=== PATIENT | female | born 2000 | race Caucasian/White ===

== ENCOUNTER 2018-05-30 21:49 | Inpatient (IN) ==
[2018-05-31] MEDS ORDERED: Tdap (Boostrix) Vaccine 0.5 ML SYRINGE IM ONE (00:40)
--- NOTE | 2018-05-31 00:44 | Emergency Department Note ---
Disposition Clinical Impression: Suicidal ideation, Self mutilating behavior Depression Qualifiers: Depression Type: unspecified Qualified Code(s): F32.9 - Major depressive disorder, single episode, unspecified Disposition: Admitted As Inpatient Condition: Good Referrals: NONE,PCP [Primary Care Provider] - Forms: ED Satisfaction Letter Time of Disposition: 05:51 Psych HPI - General Chief Complaint: ED Psychiatric Symptoms Time Seen by Provider: 05/30/18 21:57 Source: patient, EMS Nursing Notes Reviewed: Yes Vital Signs Reviewed: Yes - History of Present Illness HPI Narrative: 18-year-old female presents with complaint of self-induced lacerations to her bilateral wrists, and complaining of worsening depression. Patient states that she has self mutilated in the past, nothing recently, and she had used a razor blade to injure her wrist earlier tonight. She mentions increased stress, specifically mention that she recently had reported her brother to child protective services. She mentions that her parents were not pleased that she did this, and also request a do not visit her here. Patient describes a history of anxiety, and depression area she does mention that she has then suicidal with a plan in the past, however that was approximately 2 years ago. She currently denies suicidal ideation however she does describe worsening depression, accompanied with self-mutilation, as well as noncompliance with her psychiatric medications. She mentioned she is currently attempting to get her medical card, to [facility] with him she describes a good relationship with. She mentions she has a friend Delicia, who is in route to the hospital, and tells me that Delicia would tell me that patient often that she has OF hurting herself. Patient mentions that she is hungry and is causing some headache and nausea, but otherwise denies any recent illness, homicidal ideation, hallucinations, or any pain. - Related Data Previous Rx's Medication Instructions Recorded Sertraline [Zoloft] 25 mg PO DAILY #30 tablet 08/31/16 TraZODone 25 mg PO HS PRN #30 tablet 08/31/16 Acetaminophen w/Cod 300-30 mg 1 each PO Q6HR #20 tablet 05/19/17 [Tylenol w/Codeine #3] Ibuprofen [Motrin] 600 mg PO Q6HR PRN #30 tab 05/19/17 Ondansetron ODT [Zofran ODT] 4 mg SL Q6HR #16 tab.rapdis 05/05/18 Ondansetron HCl 4 mg PO Q6H #20 tablet 05/06/18 Allergies Allergy/AdvReac Type Severity Reaction Status Date / Time No Known Allergies Allergy Verified 08/30/16 19:51 All systems ED: reviewed and negative except as stated. Review of Systems: As Per HPI Constitutional: Denies: fever, chills, weakness Eyes: Denies: vision change ENT ED: Denies: throat pain Cardiovascular: Denies: chest pain Respiratory: Denies: dyspnea Gastrointestinal: Reports: as per HPI Genitourinary: Denies: dysuria Musculoskeletal: Denies: back pain Integumentary: Reports: as per HPI. Denies: rash Neurological: Reports: as per HPI Psychiatric: Reports: as per HPI. Denies: homicidal thoughts, auditory hallucinations, visual hallucinations Endocrine: Denies: fatigue Hematological/Lymphatic: Denies: easy bleeding Allergic/Immunologic: Denies: facial swelling Past Medical History - Past Medical History Medical history: Reports: non-contributory Psychiatric history: Reports: anxiety, depression METAL CASTING TRADES WORKER history: Reports: no METAL CASTING TRADES WORKER history - Social History Smoking Status: Never smoker Smokeless Tobacco Status: No Alcohol use: Reports: none Drug use: Reports: none Physical Exam - General Limitations: no limitations General appearance: alert, in no apparent distress - Head Head exam: atraumatic, normocephalic - Eye Eye exam: Present: EOMI - ENT ENT exam: mucous membranes moist - Neck Neck exam: Present: full ROM - Chest Chest inspection: Present: symmetric chest wall rise - Respiratory Respiratory exam: Absent: respiratory distress - Cardiovascular Cardiovascular exam: Present: regular rate - Extremities Exam Extremities exam: Present: full ROM, normal capillary refill - Expanded Upper Extremity Exam Elbow exam: Present: full ROM Forearm/Wrist exam: Present: full ROM, other (noted grouped linear lacerations on flexor surface of B wrists, mostly on left; no active bleeding) Hand exam: Present: full ROM, tenderness Neuromotor exam: Normal: wrist extension, thumb opposition, thumb IP flexion, thumb adduction, fingers 2-5 abduction Neurosensory exam: Normal: 2-point discrimination Hand tendon exam: Normal: flexor digitorum profundus (location), flexor digitorum superficialis (location), extensor tendon (location) Vascular exam: Normal: capillary refill - Back Exam Back exam: Present: full ROM - Neurological Exam Neurological exam: Present: alert - Psychiatric Psychiatric exam: Present: normal affect, normal mood - Skin Skin exam: Present: warm, dry, intact, normal color. Absent: rash, cyanosis, diaphoresis Course Course Narrative: 18-year-old female with known history of depression and anxiety, currently noncompliant with her medications, no recent counseling, presents with self- mutilation behavior, worsening depression area Patient seen and examined. she is alert, clinical sober. No evidence of any disorganized thoughts or confusion. She has lacerations or bilateral less, consistent with self- mutilation. No active bleeding. Wounds appear to be superficial and will not require closure. We will cleanse and dress wounds. , the patient's tetanus. Pt has h/o of depression, h/o of prior SI with plan, appears to be non compliant and/or no longer on medication or following up with therapy. I feel the patient will benefit from behavioral health evaluation here that attempt to medically clear her for one a consult. Patient has a friend at bedside - Reevaluation(s) Reevaluation #1: Patient's friend was no longer there, however patient's other friends kya and Telly with patient at this point. Patient describes them as her " spiritual parents". Delicia describes herself as patient's "mentor". Apparently they are roommates as well. They report that they had found patient in her bedroom, with apparent ease to her wrist, and Delicia mentions that she thought patient was unresponsive as she was unable to awaken patient. She does mention that the patient was breathing at that time.. That time 911 was called. I did review [facility] run sheet, nursing notes. [facility] had reported they were dispatched for unresponsive, however patient was alert and oriented and standing outside on their arrival. No narcan was administered. Pt is not known to due illicit drugs. Additionally patient's vital signs on [facility]' assessment :BP 139/92, pulse 131 16, 99% on room air. Initial triage vitals hear have a BP of 98/54 which I feel was falsely low due to poor BP cuff placement, as patient has an obese arms and large cuff. I've retaken patien't BP myself and her BP appears consistent with no concern for hypotension. Her HR is also within normal limits. Pt mentions she is unsure why she passed out. She declines to discuss details. She denies drug use. Pt also now appears more depressed at this point mentioning she no longer has a place to live, mentioning because the events of tonight she has been "kicked out" of her housing. I reviewed patient' recent EMR. Apparently she had one previous syncopal episode one month ago and was evlauted at [facility] discharged with vasovagal episode. She apparently returned to the ED at [facility] that same evening, observed , and discharged home with no evidence of any emergent findings. She was to f/ u with a PCP. Patient's workup is complete. She has a slight elevation of blood cell count, that I feel is less concerning for infection, likely reactive to patient's multiple abrasions on her wrist. Abrasions were cleansed with chlorhexidine, irrigated, and dressed. Her urinalysis appears to be contaminated, patient denies any UTI symptoms. Drug sceen negative. Vitals within normal limits. Patient cleared for 1A. Time: 02:23 Reevaluation #2: Patient discussed with when a nurse, Lis, who had evaluated patient, and discuss patient with on-call psychiatrist Dr. Wood. Patient now admitting her actions tonight were result of suicidal ideation. Additionally, she does meet criteria for inpatient admission. Patient accepted to [facility] staff for voluntary admission for depression and suicidal ideation. Time: 05:49 Vital Signs Temperature 98.5 F 05/30/18 21:53 Pulse Rate 112 05/30/18 21:53 Respiratory Rate 18 05/30/18 21:53 Blood Pressure 98/54 05/30/18 21:53 O2 Sat by Pulse Oximetry 97 05/30/18 21:53 Temperature 98.5 F 05/30/18 21:53 Pulse Rate 102 05/31/18 02:27 Respiratory Rate 16 05/31/18 02:27 Blood Pressure 132/84 05/31/18 02:27 O2 Sat by Pulse Oximetry 96 05/31/18 02:27 Oxygen Delivery Oxygen Delivery Room Air Psych - Lab Data Result diagrams: 05/31/18 01:05 05/31/18 01:05 Lab Results 05/31/18 05/31/18 05/31/18 Range/Units 01:05 01:05 01:30 WBC 11.9 H (4.3-11.1) K/mcL RBC 5.13 H (3.82-4.97) M/mcL Hgb 13.2 (11.5-15.4) g/dL Hct 40.5 (35.3-44.9) % MCV 78.9 L (83.0-100.0) fL MCH 25.7 L (28.0-33.3) pg MCHC 32.6 (31.6-35.5) g/dL RDW 15.0 H (11.5-14.5) % Plt Count 322 (140-400) K/mcL MPV 9.7 (9.4-12.4) fL Immature Gran % 0.3 (0-4) % Seg Neutrophils % 73.2 % Lymphocytes % 18.8 % Monocytes % 7.0 % Eosinophils % 0.3 % Basophils % 0.4 % Neutrophils # 8.7 (1.6-8.9) K/mcL Lymphocytes # 2.2 (0.6-4.6) K/mcL Monocytes # 0.8 (0.0-1.3) K/mcL Eosinophils # 0.0 (0.0-0.6) K/mcL Basophils # 0.1 (0.0-0.2) K/mcL Sodium 139 (136-145) mEq/L Potassium 3.6 (3.5-5.1) mEq/L Chloride 108 H (98-107) mEq/L Carbon Dioxide 23 (23-29) mEq/L BUN 13 (6-20) mg/dL Creatinine 0.69 (0.60-1.20) mg/dL Est GFR ( Amer) > 60 (> 60) Est GFR (Non-Af Amer) > 60 (> 60) BUN/Creatinine Ratio 19 (6-26) Glucose 97 (70-105) mg/dL Calculated Osmolality 288 (280-300) Calcium 9.3 (8.6-10.3) mg/dL Urine Color Dark Yellow (Yellow) Urine Clarity Cloudy A (Clear) Urine pH 6.0 (5.0-8.0) pH Units Ur Specific [place] 1.024 (1.010-1.025) Urine Protein 30 H (Neg-Trace) mg/dL Urine Glucose (UA) Normal (Normal) mg/dL Urine Ketones 40 H (Negative) mg/dL Urine Blood Large H (Negative) Urine Nitrite Negative (Negative) Urine Bilirubin Small H (Negative) Urine Urobilinogen Normal (Normal) mg/dL Ur Leukocyte Esterase Small H (Negative) Urine Microscopic RBC TNTC H (0-3) per hpf Urine Microscopic WBC 15-30 H (0-3) per hpf Ur Squamous Epith Cells Moderate H (None-Few) per lpf Urine Bacteria None Seen (None-Few) per hpf Hyaline Casts None Seen (None-Few) per lpf Urine Test (Negative) Salicylates < 2.5 L (15.0-30.0) mg/dL Urine Opiates Screen (Ykgmpv=843) ng/mL Acetaminophen < 10 L (10-20) mcg/mL Ur Barbiturates Screen (Nqmwmb=925) ng/mL Ur Phencyclidine Scrn (Cutoff=25) ng/mL Ur Amphetamines Screen (Eyneti=4928) ng/mL U Benzodiazepines Scrn (Nxdbaj=890) ng/mL Urine Cocaine Screen (Cutoff= 300) ng/mL U Marijuana (THC) Screen (Cutoff = 50) ng/mL Ur Drug Screen Interp Ethyl Alcohol < 10 (Less than 10) mg/dL 05/31/18 05/31/18 Range/Units 01:30 01:30 WBC (4.3-11.1) K/mcL RBC (3.82-4.97) M/mcL Hgb (11.5-15.4) g/dL Hct (35.3-44.9) % MCV (83.0-100.0) fL MCH (28.0-33.3) pg MCHC (31.6-35.5) g/dL RDW (11.5-14.5) % Plt Count (140-400) K/mcL MPV (9.4-12.4) fL Immature Gran % (0-4) % Seg Neutrophils % % Lymphocytes % % Monocytes % % Eosinophils % % Basophils % % Neutrophils # (1.6-8.9) K/mcL Lymphocytes # (0.6-4.6) K/mcL Monocytes # (0.0-1.3) K/mcL Eosinophils # (0.0-0.6) K/mcL Basophils # (0.0-0.2) K/mcL Sodium (136-145) mEq/L Potassium (3.5-5.1) mEq/L Chloride (98-107) mEq/L Carbon Dioxide (23-29) mEq/L BUN (6-20) mg/dL Creatinine (0.60-1.20) mg/dL Est GFR ( Amer) (> 60) Est GFR (Non-Af Amer) (> 60) BUN/Creatinine Ratio (6-26) Glucose (70-105) mg/dL Calculated Osmolality (280-300) Calcium (8.6-10.3) mg/dL Urine Color (Yellow) Urine Clarity (Clear) Urine pH (5.0-8.0) pH Units Ur Specific [place] (1.010-1.025) Urine Protein (Neg-Trace) mg/dL Urine Glucose (UA) (Normal) mg/dL Urine Ketones (Negative) mg/dL Urine Blood (Negative) Urine Nitrite (Negative) Urine Bilirubin (Negative) Urine Urobilinogen (Normal) mg/dL Ur Leukocyte Esterase (Negative) Urine Microscopic RBC (0-3) per hpf Urine Microscopic WBC (0-3) per hpf Ur Squamous Epith Cells (None-Few) per lpf Urine Bacteria (None-Few) per hpf Hyaline Casts (None-Few) per lpf Urine Test Negative (Negative) Salicylates (15.0-30.0) mg/dL Urine Opiates Screen Negative (Kexwmk=776) ng/mL Acetaminophen (10-20) mcg/mL Ur Barbiturates Screen Negative (Olnqdw=654) ng/mL Ur Phencyclidine Scrn Negative (Cutoff=25) ng/mL Ur Amphetamines Screen Negative (Pgwdlh=9210) ng/mL U Benzodiazepines Scrn Negative (Iiqhrq=664) ng/mL Urine Cocaine Screen Negative (Cutoff= 300) ng/mL U Marijuana (THC) Screen Negative (Cutoff = 50) ng/mL Ur Drug Screen Interp See Below Ethyl Alcohol (Less than 10) mg/dL Psychiatric Medical Clearance - Medical Clearance Checklist Does the patient have a NEW psychiatric condition?: No Any abnormalities indicating possible medical illness?: No Any history of medical issues?: No Medical History: No Social History Section defined Any abnormal vital signs prior to transfer?: No Current Vitals: Last Vital Signs Temp 98.5 F 05/30/18 21:53 Pulse 102 05/31/18 02:27 Resp 16 05/31/18 02:27 BP 132/84 05/31/18 02:27 Pulse Ox 96 05/31/18 02:27 Is the patient intoxicated or cognitively impaired?: No Psychiatric Lab Panel: Drug Levels and Toxicity 05/31/18 05/31/18 01:05 01:30 Urine Opiates Screen Negative Acetaminophen < 10 L Ur Barbiturates Screen Negative Ur Phencyclidine Scrn Negative Ur Amphetamines Screen Negative U Benzodiazepines Scrn Negative Urine Cocaine Screen Negative U Marijuana (THC) Screen Negative Ethyl Alcohol < 10 Any abnormalities on the physical exam?: Yes (multiple abrasions/lacerations to B wrists, consistent with self inflicted ) Any abnormal labs?: Yes (elevated WBC) Abnormal Labs: Abnormal lab results WBC 11.9 K/mcL (4.3-11.1) H 05/31/18 01:05 RBC 5.13 M/mcL (3.82-4.97) H 05/31/18 01:05 MCV 78.9 fL (83.0-100.0) L 05/31/18 01:05 MCH 25.7 pg (28.0-33.3) L 05/31/18 01:05 RDW 15.0 % (11.5-14.5) H 05/31/18 01:05 Chloride 108 mEq/L (98-107) H 05/31/18 01:05 Urine Clarity Cloudy (Clear) A 05/31/18 01:30 Urine Protein 30 mg/dL (Neg-Trace) H 05/31/18 01:30 Urine Ketones 40 mg/dL (Negative) H 05/31/18 01:30 Urine Blood Large (Negative) H 05/31/18 01:30 Urine Bilirubin Small (Negative) H 05/31/18 01:30 Ur Leukocyte Esterase Small (Negative) H 05/31/18 01:30 Urine Microscopic RBC TNTC per hpf (0-3) H 05/31/18 01:30 Urine Microscopic WBC 15-30 per hpf (0-3) H 05/31/18 01:30 Ur Squamous Epith Cells Moderate per lpf (None-Few) H 05/31/18 01:30 Salicylates < 2.5 mg/dL (15.0-30.0) L 05/31/18 01:05 Acetaminophen < 10 mcg/mL (10-20) L 05/31/18 01:05 If abnormals exist; proposed resolution:: likely reactive, less likely infectious cause Does the patient require durable medical equiptment?: No Is the patient ambulatory?: Yes Is the patient a fall risk?: No Has the patient been medically cleared?: Yes Any acute medical condition require Tx prior to transfer?: No Statement of Medical Clearance: I have evaluated the patient, reviewed diagnostic information, and certify that the patient's medical condition is sufficiently stable that transfer to the psychiatric unit does not pose a significant risk of deterioration.
[2018-05-31 01:17] LABS: Basophils # 0.1 K/mcL (0.0-0.2); Basophils % 0.4 %; Eosinophils % 0.3 %; Hematocrit 40.5 % (35.3-44.9); Hemoglobin 13.2 g/dL (11.5-15.4); Immature Granulocytes % 0.3 % (0-4); Lymphocytes # 2.2 K/mcL (0.6-4.6); Lymphocytes % 18.8 %; Mean Corpuscular HGB Conc 32.6 g/dL (31.6-35.5); Mean Corpuscular Hemoglobin 25.7 pg (28.0-33.3); Mean Corpuscular Volume 78.9 fL (83.0-100.0); Mean Platelet Volume 9.7 fL (9.4-12.4); Monocytes # 0.8 K/mcL (0.0-1.3); Neutrophils # 8.7 K/mcL (1.6-8.9); Platelet Count 322 K/mcL (140-400); Red Blood Count 5.13 M/mcL (3.82-4.97); Segmented Neutrophils % 73.2 %
[2018-05-31 01:38] LABS: Acetaminophen < 10 mcg/mL (10-20); BUN/Creatinine Ratio 19 (6-26); Blood Urea Nitrogen 13 mg/dL (6-20); Calcium 9.3 mg/dL (8.6-10.3); Carbon Dioxide 23 mEq/L (23-29); Chloride 108 mEq/L (98-107); Ethanol < 10 mg/dL (Less than 10); Glucose 97 mg/dL (70-105); Osmolality,Calculated 288 (280-300); Potassium 3.6 mEq/L (3.5-5.1); Salicylate < 2.5 mg/dL (15.0-30.0); Sodium 139 mEq/L (136-145); eGFR For Non-African Americans > 60 (> 60)
[2018-05-31 01:42] LABS: Bilirubin,Urine Small (Negative); Blood,Urine Large (Negative); Clarity,Urine Cloudy (Clear); Color,Urine Dark Yellow (Yellow); Glucose,Urine (UA) Normal (Normal); Ketones,Urine 40 mg/dL (Negative); Leukocyte Esterase,Urine Small (Negative); Nitrite,Urine Negative (Negative); Protein,Urine 30 mg/dL (Neg-Trace); Specific Gravity,Urine 1.024 (1.010-1.025); Urobilinogen,Urine Normal (Normal)
[2018-05-31 01:44] LABS: Bacteria,Urine None Seen per hpf (None-Few); Hyaline Casts,Urine None Seen per lpf (None-Few); RBC,Urine TNTC per hpf (0-3); Squamous Epithelial Cell,Urine Moderate per lpf (None-Few); WBC,Urine 15-30 per hpf (0-3)
[2018-05-31 01:53] LABS: Amphetamine Screen,Urine Negative ng/mL (Cutoff=1000); Barbiturate Screen,Urine Negative ng/mL (Cutoff=200); Benzodiazepines Screen,Urine Negative ng/mL (Cutoff=200); Cannabinoid Screen,Urine Negative ng/mL (Cutoff = 50); Cocaine Screen,Urine Negative ng/mL (Cutoff= 300); Opiate Screen,Urine Negative ng/mL (Cutoff=300); Phencyclidine Screen,Urine Negative ng/mL (Cutoff=25)
--- NOTE | 2018-05-31 05:46 | Emergency Department Note ---
Disposition Clinical Impression: Suicidal ideation, Self mutilating behavior Depression Qualifiers: Depression Type: major depressive disorder Major depression recurrence: single episode Active/Remission status: currently active Major depression episode severity: moderate Qualified Code(s): F32.1 - Major depressive disorder, single episode, moderate Disposition: Admitted As Inpatient Condition: Good General Adult HPI - General Chief complaint: ED Psychiatric Symptoms Stated complaint: "cuts to wrist" Time Seen by Provider: 05/30/18 21:57 Source: patient, EMS Limitations: no limitations Nursing Notes Reviewed: Yes Vital Signs Reviewed: Yes - History of Present Illness Pain Scale: 0 - Related Data Previous Rx's Medication Instructions Recorded Sertraline [Zoloft] 25 mg PO DAILY #30 tablet 08/31/16 TraZODone 25 mg PO HS PRN #30 tablet 08/31/16 Acetaminophen w/Cod 300-30 mg 1 each PO Q6HR #20 tablet 05/19/17 [Tylenol w/Codeine #3] Ibuprofen [Motrin] 600 mg PO Q6HR PRN #30 tab 05/19/17 Ondansetron ODT [Zofran ODT] 4 mg SL Q6HR #16 tab.rapdis 05/05/18 Ondansetron HCl 4 mg PO Q6H #20 tablet 05/06/18 Allergies Allergy/AdvReac Type Severity Reaction Status Date / Time No Known Allergies Allergy Verified 08/30/16 19:51 Constitutional: Denies: fever, chills, weakness Eyes: Denies: vision change ENT ED: Denies: throat pain Cardiovascular: Denies: chest pain Respiratory: Denies: dyspnea Gastrointestinal: Reports: as per HPI Genitourinary: Denies: dysuria Musculoskeletal: Denies: back pain Integumentary: Reports: as per HPI. Denies: rash Neurological: Reports: as per HPI Psychiatric: Reports: as per HPI. Denies: homicidal thoughts, auditory hallucinations, visual hallucinations Endocrine: Denies: fatigue Hematological/Lymphatic: Denies: easy bleeding Allergic/Immunologic: Denies: facial swelling Past Medical History - Past Medical History Medical history: Reports: non-contributory Psychiatric history: Reports: anxiety, depression SOLAR DEVELOPMENT ENGINEER history: Reports: no SOLAR DEVELOPMENT ENGINEER history - Social History Smoking Status: Never smoker Smokeless Tobacco Status: No Alcohol use: Reports: none Drug use: Reports: none Physical Exam - General Limitations: no limitations General appearance: alert, in no apparent distress Course Vital Signs Temperature 98.5 F 05/30/18 21:53 Pulse Rate 112 05/30/18 21:53 Respiratory Rate 18 05/30/18 21:53 Blood Pressure 98/54 05/30/18 21:53 O2 Sat by Pulse Oximetry 97 05/30/18 21:53 Temperature 98.5 F 05/30/18 21:53 Pulse Rate 102 05/31/18 02:27 Respiratory Rate 16 05/31/18 02:27 Blood Pressure 132/84 05/31/18 02:27 O2 Sat by Pulse Oximetry 96 05/31/18 02:27 Oxygen Delivery Oxygen Delivery Room Air Medical Decision Making - Lab Data Lab results reviewed: Yes I reviewed the patient's lab results. Result diagrams: 05/31/18 01:05 05/31/18 01:05 Lab Results 05/31/18 05/31/18 05/31/18 Range/Units 01:05 01:05 01:30 WBC 11.9 H (4.3-11.1) K/mcL RBC 5.13 H (3.82-4.97) M/mcL Hgb 13.2 (11.5-15.4) g/dL Hct 40.5 (35.3-44.9) % MCV 78.9 L (83.0-100.0) fL MCH 25.7 L (28.0-33.3) pg MCHC 32.6 (31.6-35.5) g/dL RDW 15.0 H (11.5-14.5) % Plt Count 322 (140-400) K/mcL MPV 9.7 (9.4-12.4) fL Immature Gran % 0.3 (0-4) % Seg Neutrophils % 73.2 % Lymphocytes % 18.8 % Monocytes % 7.0 % Eosinophils % 0.3 % Basophils % 0.4 % Neutrophils # 8.7 (1.6-8.9) K/mcL Lymphocytes # 2.2 (0.6-4.6) K/mcL Monocytes # 0.8 (0.0-1.3) K/mcL Eosinophils # 0.0 (0.0-0.6) K/mcL Basophils # 0.1 (0.0-0.2) K/mcL Sodium 139 (136-145) mEq/L Potassium 3.6 (3.5-5.1) mEq/L Chloride 108 H (98-107) mEq/L Carbon Dioxide 23 (23-29) mEq/L BUN 13 (6-20) mg/dL Creatinine 0.69 (0.60-1.20) mg/dL Est GFR ( Amer) > 60 (> 60) Est GFR (Non-Af Amer) > 60 (> 60) BUN/Creatinine Ratio 19 (6-26) Glucose 97 (70-105) mg/dL Calculated Osmolality 288 (280-300) Calcium 9.3 (8.6-10.3) mg/dL Urine Color Dark Yellow (Yellow) Urine Clarity Cloudy A (Clear) Urine pH 6.0 (5.0-8.0) pH Units Ur Specific [place] 1.024 (1.010-1.025) Urine Protein 30 H (Neg-Trace) mg/dL Urine Glucose (UA) Normal (Normal) mg/dL Urine Ketones 40 H (Negative) mg/dL Urine Blood Large H (Negative) Urine Nitrite Negative (Negative) Urine Bilirubin Small H (Negative) Urine Urobilinogen Normal (Normal) mg/dL Ur Leukocyte Esterase Small H (Negative) Urine Microscopic RBC TNTC H (0-3) per hpf Urine Microscopic WBC 15-30 H (0-3) per hpf Ur Squamous Epith Cells Moderate H (None-Few) per lpf Urine Bacteria None Seen (None-Few) per hpf Hyaline Casts None Seen (None-Few) per lpf Urine Test (Negative) Salicylates < 2.5 L (15.0-30.0) mg/dL Urine Opiates Screen (Hzxelw=112) ng/mL Acetaminophen < 10 L (10-20) mcg/mL Ur Barbiturates Screen (Qudiyo=390) ng/mL Ur Phencyclidine Scrn (Cutoff=25) ng/mL Ur Amphetamines Screen (Uxevve=9650) ng/mL U Benzodiazepines Scrn (Wiiybl=743) ng/mL Urine Cocaine Screen (Cutoff= 300) ng/mL U Marijuana (THC) Screen (Cutoff = 50) ng/mL Ur Drug Screen Interp Ethyl Alcohol < 10 (Less than 10) mg/dL 18 05/31/18 Range/Units 01:30 01:30 WBC (4.3-11.1) K/mcL RBC (3.82-4.97) M/mcL Hgb (11.5-15.4) g/dL Hct (35.3-44.9) % MCV (83.0-100.0) fL MCH (28.0-33.3) pg MCHC (31.6-35.5) g/dL RDW (11.5-14.5) % Plt Count (140-400) K/mcL MPV (9.4-12.4) fL Immature Gran % (0-4) % Seg Neutrophils % % Lymphocytes % % Monocytes % % Eosinophils % % Basophils % % Neutrophils # (1.6-8.9) K/mcL Lymphocytes # (0.6-4.6) K/mcL Monocytes # (0.0-1.3) K/mcL Eosinophils # (0.0-0.6) K/mcL Basophils # (0.0-0.2) K/mcL Sodium (136-145) mEq/L Potassium (3.5-5.1) mEq/L Chloride (98-107) mEq/L Carbon Dioxide (23-29) mEq/L BUN (6-20) mg/dL Creatinine (0.60-1.20) mg/dL Est GFR ( Amer) (> 60) Est GFR (Non-Af Amer) (> 60) BUN/Creatinine Ratio (6-26) Glucose (70-105) mg/dL Calculated Osmolality (280-300) Calcium (8.6-10.3) mg/dL Urine Color (Yellow) Urine Clarity (Clear) Urine pH (5.0-8.0) pH Units Ur Specific [place] (1.010-1.025) Urine Protein (Neg-Trace) mg/dL Urine Glucose (UA) (Normal) mg/dL Urine Ketones (Negative) mg/dL Urine Blood (Negative) Urine Nitrite (Negative) Urine Bilirubin (Negative) Urine Urobilinogen (Normal) mg/dL Ur Leukocyte Esterase (Negative) Urine Microscopic RBC (0-3) per hpf Urine Microscopic WBC (0-3) per hpf Ur Squamous Epith Cells (None-Few) per lpf Urine Bacteria (None-Few) per hpf Hyaline Casts (None-Few) per lpf Urine Test Negative (Negative) Salicylates (15.0-30.0) mg/dL Urine Opiates Screen Negative (Ctviyi=516) ng/mL Acetaminophen (10-20) mcg/mL Ur Barbiturates Screen Negative (Xhmmaw=228) ng/mL Ur Phencyclidine Scrn Negative (Cutoff=25) ng/mL Ur Amphetamines Screen Negative (Nusmuu=9683) ng/mL U Benzodiazepines Scrn Negative (Roccva=553) ng/mL Urine Cocaine Screen Negative (Cutoff= 300) ng/mL U Marijuana (THC) Screen Negative (Cutoff = 50) ng/mL Ur Drug Screen Interp See Below Ethyl Alcohol (Less than 10) mg/dL Attestation Statement - Attestation Attestation: I, Lokesh Bergman MD, personally evaluated this patient and discussed their management with the midlevel provicer, PAC/DIRECTOR E LEARNING. I reviewed the midlevel provider 's note and agree with the documented findings, medical decision making, and plan of care. 18-year-old female presents to the emergency department with a complaint of increasing depression and self-inflicted lacerations to her wrist. She initially denied suicidal ideation but later admitted to suicidal ideation and intent. She has been admitted previously for the same problems. On examination patient is a well-developed morbidly obese young female in no acute distress. She is alert and oriented 3. There is no cyanosis or diaphoresis. Breath sounds are clear and equal bilaterally. Heart regular rate and rhythm. [address] psychiatry service was consulted and evaluated the patient in the emergency department and after evaluation patient is being admitted to the [address] psychiatric unit.
[2018-05-31] MEDS ORDERED: Mag Hydrox/Al Hydrox/Simeth 30 ML UDC PO PRN (06:08)
[2018-05-31] MEDS ORDERED: Acetaminophen 325 MG TABLET PO PRN (06:08)
[2018-05-31] MEDS ORDERED: traZODone 50 MG TABLET PO PRN (06:08)
[2018-05-31] MEDS ORDERED: *HR* LORazepam 1 MG TABLET PO PRN (06:08)
[2018-05-31] MEDS ORDERED: *HR* LORazepam 2 MG/ML VIAL IM PRN (06:08)
[2018-05-31] MEDS ORDERED: hydrOXYzine pamoate 25 MG CAPSULE PO PRN (06:08)
[2018-05-31] MEDS ORDERED: MOM Conc 10 ML UD.LIQ PO PRN (06:08)
[2018-05-31] MEDS ORDERED: Haloperidol Lactate 5 MG/ML VIAL IM PRN (06:08)
--- NOTE | 2018-05-31 14:33 | Psychiatry History & Physical ---
Date of Encounter: 05/31/18 Time of Encounter: 14:30 History of Present Illness Patient Stated Chief Complaint: I was cutting Medicare Admission Attestation: For traditional Medicare patients the provided hospital inpatient services are reasonable and necessary and in the case of services not specified as inpatient -only under 42 CFR 419.22 (n), that they are appropriately provided as inpatient services in accordance 42 CFR 412.3. For Critical Access Hospital the patient may reasonably be expected to be discharged or transferred to a hospital within 96 hours after admission to the Critical Access Hospital. Admitted From: Emergency Dept Plans for Post Hospital Care: Home History of Present Illness: Ms. Ritchie is a 18 year old female The patient is a 18-year-old single white female. Chief complaint I started cutting I have never attempted suicide I did not have intention but I did have a plan. 2 history of present illness. The reader is referred to the patient's inpatient hospitalization in August 2016 and the outpatient that she gotten counseling in 2016. The patient reports that she had done favorably on Zoloft and trazodone. She notes that she had slowly gone off her medicines and had not followed up. But there were changes in mood changes and activity changes in health care and her friend started to notice this the encouraged her to get treatment. The patient started cutting again in February 2018 and more recently cut again the reader is referred to the admission notes. The patient presented to the ER around passed out and may have had a vasovagal syncope. The patient awoke and agreed to voluntary admission to get started back on her medicines. She currently has no insurance but plans to apply for this. Past psychiatric history. The reader is deferred to the previous charts but the patient had been in her usual state of health and mood she was a student in 2016 and she had gone to 2 weeks of classes and then decided not to go back. Unfortunately this generated some unpaid loans that she have come due The patient was treated with Zoloft and trazodone in counseling over that period of time. The patient's episode may have gone into remission without treatment. The patient is a episcopalian person and goes to [facility] 4-5 times per week. Past medical history. The patient had surgery she had her tonsils removed in 2016. She had a cyst removed from her back earlier. The allergies NKDA illnesses pyelonephritis as listed and the patient has been told that she has a kidney mass or pouch that requires antibiotic treatment. Including and IV antibiotics. The patient is on control to regulate her menses with Ortho Tri-Cyclen and Sprintec. The patient has no PCP dentist or eye care: She does wear glasses. She did not follow-up with scheduled appointments Family history. The patient's maternal aunt mother and maternal grandmother had problems with mood. The patient's mother had a bad reaction to Prozac and became suicidal. The patient's father's side of the family has trouble with alcohol and drugs. There is suicide on both sides of the family one on her mother's side and 2 on her father's side. Social history the patient is 18 years old she is not she is a student and now will attend [employer]. She is scheduled to move in in 2 weeks. The patient lives in the [facility] and she rents a room upstairs. There is an arrangement for young Congregational adult to live in this arrangement that is somewhat of a commune style. She is not sure that she will be able to go back but will talk to Usha runs the establishment. She has been to people that she identifies as her support or mentors. The patient reports no major problems in a review of systems but notes she would like to get back to work and Dr. The patient denied dysuria and noted that the urine findings may be due to menses Past Med Surg Social Fam HX - Past Medical History Source: patient Medical history: non-contributory - Past Psychiatric History Psychiatric history: Reports: depression, previous psychiatric hospitalization Family psychiatric history: Yes Family History of Suicide: Completed - Past Surgical History Surgical History: other - Social History Smoking Status: Never smoker Smokeless Tobacco Status: No Alcohol use: none Drug use: none Occupational status: student Current living situation: Home - Independent Activity Level: Independent ambulation Recent Out of Country Travel Within the Last 8 Weeks: No Exposure or Possible Exposure to Illness During Travel: No - Family History Mother Adopted: No Living Status: Still Living Hx Family Cardiac Disorders: Yes Hx Family Respiratory Disorders: Yes Hx Family Cancer: Yes Hx Family GI Disorders: Yes Hx Family Endocrine Disorder: Yes Hx Family Neuromuscular Disorders: Yes Hx Family Neurologic Disorders: Yes Hx Family HEENT Disorders: Yes Hx Family Autoimmune Disorders: No Medications & Allergies Sertraline [Zoloft] 25 mg PO DAILY #30 tablet 08/31/16 [Rx] TraZODone 25 mg PO HS PRN #30 tablet 08/31/16 [Rx] Acetaminophen w/Cod 300-30 mg [Tylenol w/Codeine #3] 1 each PO Q6HR #20 tablet 05/19/17 [Rx] Ibuprofen [Motrin] 600 mg PO Q6HR PRN #30 tab 05/19/17 [Rx] Ondansetron ODT [Zofran ODT] 4 mg SL Q6HR #16 tab.rapdis 05/05/18 [Rx] Ondansetron HCl 4 mg PO Q6H #20 tablet 05/06/18 [Rx] 3 Allergy/AdvReac Type Severity Reaction Status Date / Time No Known Allergies Allergy Verified 08/30/16 19:51 Review of Systems Constitutional: Denies: fever, chills, weakness, weight change Eyes: Denies: eye pain, vision change Ears, Nose, Throat: Denies: ear pain, throat pain, dental pain, hearing loss, congestion Cardiovascular: Denies: chest pain, palpitations, dyspnea on exertion Respiratory: Denies: cough, dyspnea, wheezes Gastrointestinal: Denies: abdominal pain, nausea, vomiting, diarrhea, constipation Genitourinary female: Denies: urgency, dysuria, frequency, abnormal menses, dyspareunia Musculoskeletal: Denies: joint swelling, joint pain Integumentary: Denies: rash, lesions, pruritus Neurological: Denies: headache, weakness, numbness, memory loss Psychiatric: Reports: depression, suicidal ideation Endocrine: Denies: fatigue, heat or cold intolerance Hematologic/Lymphatic: Denies: easy bruising, lymphadenopathy Allergic/Immunologic: Denies: urticaria, itchy eyes Exam - HEENT Head exam IM: Present: atraumatic Eye exam IM: Present: EOMI, normal appearance, PERRL ENT exam IM: Present: normal exam - Neurological Neurological exam: Present: CN II-XII intact - Respiratory Respiratory exam IM: Present: CTAB - GI/Abdominal GI/Abdominal exam IM: Present: normal bowel sounds, soft. Absent: tenderness - Extremities Extremities exam IM: Present: full ROM - Skin Skin exam IM: Present: dry, warm - Constitutional Vitals: Temp Pulse Resp BP Pulse Ox 97.4 F L 88 18 140/93 96 05/31/18 09:00 05/31/18 09:00 05/31/18 09:00 05/31/18 09:00 05/31/18 02:27 General appearance: age & developmentally appropriate, well-groomed, well- nourished - Musculoskeletal Gait: normal Station: relaxed Strength & Tone: normal for patient - Psychiatric Patient Orientation: Yes Person, Yes Time, Yes Place Level of alertness: Alert Behavior: calm, cooperative Psychomotor activity: Normal Eye Contact: Maintains Eye Contact Mood Description: Depressed Affect description: congruent with mood Speech Volume: Normal Speech pattern: normal rate, normal rhythm, normal tone, fluent, spontaneous Language & Vocabulary: consistent with education Thought Process: Linear, Goal Oriented Thought Content: Yes Suicidal ideation, No Homicidal ideation, No Overt delusions Perceptual Disturbances: No Auditory hallucinations, No Visual hallucinations Attention Span Ability: Capable of Focused Attention Memory Description: Grossly Intact Patient Reliability: Reliable Historian Fund of knowledge: Yes abstraction ability, Yes average, Yes aware of current events Intelligence Estimate: Average Judgment: Fair Insight: Partial Results - Labs Labs: Laboratory Last Values WBC 11.9 K/mcL (4.3-11.1) H 05/31/18 01:05 RBC 5.13 M/mcL (3.82-4.97) H 05/31/18 01:05 Hgb 13.2 g/dL (11.5-15.4) 05/31/18 01:05 Hct 40.5 % (35.3-44.9) 05/31/18 01:05 MCV 78.9 fL (83.0-100.0) L 05/31/18 01:05 MCH 25.7 pg (28.0-33.3) L 05/31/18 01:05 MCHC 32.6 g/dL (31.6-35.5) 05/31/18 01:05 RDW 15.0 % (11.5-14.5) H 05/31/18 01:05 Plt Count 322 K/mcL (140-400) 05/31/18 01:05 MPV 9.7 fL (9.4-12.4) 05/31/18 01:05 Immature Gran % 0.3 % (0-4) 05/31/18 01:05 Seg Neutrophils % 73.2 % 05/31/18 01:05 Lymphocytes % 18.8 % 05/31/18 01:05 Monocytes % 7.0 % 05/31/18 01:05 Eosinophils % 0.3 % 05/31/18 01:05 Basophils % 0.4 % 05/31/18 01:05 Neutrophils # 8.7 K/mcL (1.6-8.9) 05/31/18 01:05 Lymphocytes # 2.2 K/mcL (0.6-4.6) 05/31/18 01:05 Monocytes # 0.8 K/mcL (0.0-1.3) 05/31/18 01:05 Eosinophils # 0.0 K/mcL (0.0-0.6) 05/31/18 01:05 Basophils # 0.1 K/mcL (0.0-0.2) 05/31/18 01:05 Sodium 139 mEq/L (136-145) 05/31/18 01:05 Potassium 3.6 mEq/L (3.5-5.1) 05/31/18 01:05 Chloride 108 mEq/L (98-107) H 05/31/18 01:05 Carbon Dioxide 23 mEq/L (23-29) 05/31/18 01:05 BUN 13 mg/dL (6-20) 05/31/18 01:05 Creatinine 0.69 mg/dL (0.60-1.20) 05/31/18 01:05 Est GFR ( Amer) > 60 (> 60) 05/31/18 01:05 Est GFR (Non-Af Amer) > 60 (> 60) 05/31/18 01:05 BUN/Creatinine Ratio 19 (6-26) 05/31/18 01:05 Glucose 97 mg/dL (70-105) 05/31/18 01:05 Calculated Osmolality 288 (280-300) 05/31/18 01:05 Calcium 9.3 mg/dL (8.6-10.3) 05/31/18 01:05 Urine Color Dark Yellow (Yellow) 05/31/18 01:30 Urine Clarity Cloudy (Clear) A 05/31/18 01:30 Urine pH 6.0 pH Units (5.0-8.0) 05/31/18 01:30 Ur Specific Mobile 1.024 (1.010-1.025) 05/31/18 01:30 Urine Protein 30 mg/dL (Neg-Trace) H 05/31/18 01:30 Urine Glucose (UA) Normal mg/dL (Normal) 05/31/18 01:30 Urine Ketones 40 mg/dL (Negative) H 05/31/18 01:30 Urine Blood Large (Negative) H 05/31/18 01:30 Urine Nitrite Negative (Negative) 05/31/18 01:30 Urine Bilirubin Small (Negative) H 05/31/18 01:30 Urine Urobilinogen Normal mg/dL (Normal) 05/31/18 01:30 Ur Leukocyte Esterase Small (Negative) H 05/31/18 01:30 Urine Microscopic RBC TNTC per hpf (0-3) H 05/31/18 01:30 Urine Microscopic WBC 15-30 per hpf (0-3) H 05/31/18 01:30 Ur Squamous Epith Cells Moderate per lpf (None-Few) H 05/31/18 01:30 Urine Bacteria None Seen per hpf (None-Few) 05/31/18 01:30 Hyaline Casts None Seen per lpf (None-Few) 05/31/18 01:30 Urine Test Negative (Negative) 05/31/18 01:30 Salicylates < 2.5 mg/dL (15.0-30.0) L 05/31/18 01:05 Urine Opiates Screen Negative ng/mL (Ykicfz=409) 05/31/18 01:30 Acetaminophen < 10 mcg/mL (10-20) L 05/31/18 01:05 Ur Barbiturates Screen Negative ng/mL (Yxwywb=747) 05/31/18 01:30 Ur Phencyclidine Scrn Negative ng/mL (Cutoff=25) 05/31/18 01:30 Ur Amphetamines Screen Negative ng/mL (Hyiudv=5155) 05/31/18 01:30 U Benzodiazepines Scrn Negative ng/mL (Ktexof=024) 05/31/18 01:30 Urine Cocaine Screen Negative ng/mL (Cutoff= 300) 05/31/18 01:30 U Marijuana (THC) Screen Negative ng/mL (Cutoff = 50) 05/31/18 01:30 Ur Drug Screen Interp See Below 05/31/18 01:30 Ethyl Alcohol < 10 mg/dL (Less than 10) 05/31/18 01:05 Assessment and Plan (1) Recurrent brief depressive disorder Current visit: Yes Status: Acute Plan: Admit inpatient for safety and stabilization, Close observation, Suicide Precautions per unit protocol, Encourage participation in unit milieu, Monitor sleep Risks, benefits, side effects, alternatives discussed w/pt: Yes Patient agreeable to treatment: Yes Plans for Post Hospital Care: Home Estimated Length of Stay (Days): 3 (2) Suicidal ideation Current visit: Yes Status: Acute Plan: Admit inpatient for safety and stabilization, Close observation Risks, benefits, side effects, alternatives discussed w/pt: Yes Patient agreeable to treatment: Yes Plans for Post Hospital Care: Home (3) Self mutilating behavior Current visit: Yes Status: Acute Plan: Secure weapons, Family/Supportive other meeting Risks, benefits, side effects, alternatives discussed w/pt: Yes Patient agreeable to treatment: Yes Plans for Post Hospital Care: Home
[2018-05-31] MEDS: traZODone 50 MG TABLET PO SCH (21:29)
[2018-06-01] MEDS: traZODone 50 MG TABLET PO SCH (09:47)
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
--- NOTE | 2018-06-02 09:50 | Discharge Summary ---
Date of Encounter: 06/02/18 Time of Encounter: 09:45 Diagnosis - Discharge Diagnosis (1) Major depression Status: Acute Qualifiers: Major depression recurrence: recurrent Active/Remission status: currently active Major depression episode severity: moderate Qualified Code(s): F33.1 - Major depressive disorder, recurrent, moderate (2) Self mutilating behavior Status: Acute Medications - Discharge Medications Prescriptions: Sertraline [Zoloft] 25 mg PO DAILY #14 tablet Sertraline [Zoloft] 25 mg PO DAILY #14 tablet 06/02/18 [Rx] 3 Allergy/AdvReac Type Severity Reaction Status Date / Time No Known Allergies Allergy Verified 06/01/18 13:26 Provider Date of admission: 05/31/18 05:49 Primary care physician: PCP NONE Consults: 05/31/18 13:54 Consult to Pastoral Services [CONS] Routine Comment: Discharging clinician: Gisele Ravi Psychiatry Exam - Constitutional Vitals: Temp Pulse Resp BP Pulse Ox 98.2 F 75 16 152/96 96 06/01/18 20:48 06/01/18 20:48 06/01/18 20:48 06/01/18 20:48 05/31/18 02:27 General appearance: age & developmentally appropriate, obese - Musculoskeletal Gait: normal Station: relaxed Strength & Tone: normal for patient - Psychiatric Patient Orientation: Yes Person, Yes Time, Yes Place Level of alertness: Alert Behavior: calm, cooperative Psychomotor activity: Normal Eye Contact: Maintains Eye Contact Mood Description: Depressed Affect description: congruent with mood Speech Volume: Normal Speech pattern: normal rate, normal rhythm, normal tone, fluent, spontaneous Language & Vocabulary: consistent with education Thought Process: Linear, Goal Oriented Thought Content: No Suicidal ideation, No Homicidal ideation, No Overt delusions Perceptual Disturbances: No Auditory hallucinations, No Visual hallucinations Attention Span Ability: Capable of Focused Attention Memory Description: Grossly Intact Patient Reliability: Reliable Historian Fund of knowledge: Yes abstraction ability, Yes aware of current events Intelligence Estimate: Average Judgment: Fair Insight: Partial Hospital Course Hospital course: Ms. Ritchie is a 18 year old female who was admitted secondary to cutting behaviors. Denied SI entire time she was on the unit. Appeared depressed and flat but agreeable to starting Zoloft and tolerated it well. Has responded well to counseling in the past and is waiting for her medical card to get back in with a therapist. Willing to take Zoloft until that happens. No self harm behaviors on the unit. Very tenriism and lives in [facility] housing. Plan is for friend to pick her up and take her back to housing. Client is hopeful they will let her stay. If she cannot stay there, client's parents are agreeable to having client live with them for as long as needed. No behavioral issues in the hospital. No evidence of a thought disorder. Denies SI/HI. Future oriented. - Time Spent with Patient Total time spent providing and/or coordinating discharge services: Assessment and Plan - Patient/Caregiver Discharge Instructions Activity: resume usual activities as tolerated Diet: regular diet - Follow up Plan Follow up with: [facility] [Outside] (You will see Cece Walton for outpatient sychiatric assessment and medication management services on 06/26/2018 at 3: 00pm. You will also see Norm Rainey for outpatient mental health counseling services on 07/08/2018 at 1:00pm. Please bring you photo ID and insurance card to these appointments. If you receive proof medicaid coverage before these appointments, please call to see if you can be scheduled sooner.) Functional capacity at discharge: independent ambulation Overall status at discharge: Stable Disposition: Home, Self-Care Quality - Multiple Antipsychotics Patient discharged on 2 or more antipsychotic medications: No Procedures - Procedures Procedures: Medication Management, Crisis Stabilization, Supportive Therapy, Group Therapy
[2018-06-02 10:27] VITALS: BP 141/89
== END 2018-06-02 13:52 | disposition home or self-care (01) | DRG 751 ==
LOC: EMEROO 21:49 → 1ANU 05-31 05:49
PROVIDERS: ADMIT Psychiatry & Neurology Forensic Psychiatry; ATTEND Psychiatry & Neurology Forensic Psychiatry